=== PATIENT | female | born 1975 | race Caucasian/White ===

== ENCOUNTER 2017-06-03 17:41 | Emergency (ER) | payer OTHER, SELFPAY ==
[2017-06-03 18:49] VITALS: BP 124/80; PULSE 73; RESP 20; TEMP 36.6; O2SAT 99; BMI 27.8
--- NOTE | 2017-06-03 19:05 | HMH.EDUTC ---
[facility] [place] Disposition Clinical Impression: Sore throat, Cough Disposition: Home, Self-Care Condition on Discharge: Good Additional Instructions: * Monitor Temp. Tylenol and/or Ibuprofen as needed. ER if fever is no less than 101 despite alternating Tylenol and Ibuprofen * Encourage fluids, water, Gatorade, powerade, pedialyte if /toddler/or child * Warm salt water gargles for throat irritation *Warm fluids *Sore throat lozenges *Sleep elevated *humidifier or vaporizer Lots of rest Increase fluids, water, Gatorade, powerade Follow up IMMEDIATELY for new or worsening of symptoms OR no noticeable improvement over the next 48-72 hours. 911 immediately for any life threatening symptoms such as chest pain or difficulty breathing Prescriptions: Azithromycin [Z-Porfirio 250mg Tab] 250 mg PO UD DOSE PK #6 tab predniSONE [Prednisone 20mg Tab] 20 mg PO BID #10 tab Promethazine/Dextromethorphan [Promethazine-Dm Syrup] 5 ml PO Q4H #150 syrup Time of Disposition: 19:13 Medical Decision Making Vital Signs: 06/03/17 18:49 Temperature 98 F Temperature Source Temporal Artery Scan Pulse Rate [Right Radial] 73 Respiratory Rate 20 Blood Pressure [Right Arm] 124/80 Blood Pressure Mean [Right Arm] 94 Blood Pressure Source [Right Arm] Automatic Cuff Blood Pressure Position [Right Arm] Sitting 02 Sat by Pulse Oximetry 99 Oxygen Delivery Method Room Air - Myron Inquiry Pt receiving controlled substance: No Myron was queried for this patient: No [facility] [place] HPI - General Stated complaint: cough sore throat ear pain Time Seen by Provider: 06/03/17 19:13 Mode of Arrival: Ambulatory Source of Information: Patient Limitations: No Limitations Description of Symptoms (Recalled from Triage Doc. by RN): PT C/O COUGH, BODY ACHES, AND FEVER. HEENT Symptoms (Recalled from RN notes): No Resp Symptoms (Recalled from RN notes): Yes (COUGH) Skin Symptoms (Recalled from RN notes): No MS Symptoms (Recalled from RN notes): No Functional Status (Recalled from RN notes): NA - History of Present Illness Provider Complaint: Patient state that she has been having cough and congestion along with sinus pain and drainage Onset (ago): day(s) (3) Severity: mild Severity scale (1-10): 3 Exacerbating factors: none Treatments prior to arrival: none - Related Data Previous Rx's Medication Instructions Recorded Azithromycin [Z-Porfirio 250mg Tab] 250 mg PO UD DOSE PK #6 tab 06/03/17 Promethazine/Dextromethorphan 5 ml PO Q4H #150 syrup 06/03/17 [Promethazine-Dm Syrup] predniSONE [Prednisone 20mg 20 mg PO BID #10 tab 06/03/17 Tab] Allergies Allergy/AdvReac Type Severity Reaction Status Date / Time amoxicillin Allergy Verified 06/03/17 18:56 Sulfa (Sulfonamide Allergy Verified 06/03/17 18:56 Antibiotics) tetracycline Allergy Verified 06/03/17 18:56 - Worker's Comp Is this a Worker's Comp case?: No Is this an [facility] Worker's Comp?: No Is this a [place] Worker's Comp?: No [facility] History Medical History: Denies:: Cancer, Diabetes Mellitus Type 1, Diabetes Mellitus Type 2, MRSA Amputation: No Fractures: No - *Social History Smoking Status: Never smoker Alcohol Intake: never - Psychiatric History Expresses thoughts of harming self/others: None Suicide Plan Description: No Plan - Constitutional Reports chills, Reports fever(s) - ENT Reports nasal congestion - Respiratory Reports chest congestion, Reports cough Physical Exam - General General appearance: alert, in no apparent distress - ENT ENT exam: Present: normal exam, normal oropharynx, mucous membranes moist, TM's normal bilaterally, normal external ear exam - Expanded ENT Exam Nose exam: Present: sinus tenderness Comment: Throat red irritated, tenderness noted maxillary sinus - Chest Chest inspection: Present: normal inspection, symmetric chest wall rise. Absent: tenderness - Respiratory Respiratory exam: Present: normal lung sounds bi
--- NOTE | 2017-06-03 19:09 | ED_ITS ---
[facility] [place] Clinical Impression: Sore throat, Cough Disposition: Home, Self-Care Condition on Discharge: Good Additional Instructions: * Monitor Temp. Tylenol and/or Ibuprofen as needed. ER if fever is no less than 101 despite alternating Tylenol and Ibuprofen * Encourage fluids, water, Gatorade, powerade, pedialyte if /toddler/or child * Warm salt water gargles for throat irritation *Warm fluids *Sore throat lozenges *Sleep elevated *humidifier or vaporizer Lots of rest Increase fluids, water, Gatorade, powerade Follow up IMMEDIATELY for new or worsening of symptoms OR no noticeable improvement over the next 48-72 hours. 911 immediately for any life threatening symptoms such as chest pain or difficulty breathing Prescriptions: Azithromycin [Z-Porfirio 250mg Tab] 250 mg PO UD DOSE PK #6 tab predniSONE [Prednisone 20mg Tab] 20 mg PO BID #10 tab Promethazine/Dextromethorphan [Promethazine-Dm Syrup] 5 ml PO Q4H #150 syrup Time of Disposition: 19:13 Medical Decision Making Vital Signs: 06/03/17 18:49 Temperature 98 F Temperature Source Temporal Artery Scan Pulse Rate [Right Radial] 73 Respiratory Rate 20 Blood Pressure [Right Arm] 124/80 Blood Pressure Mean [Right Arm] 94 Blood Pressure Source [Right Arm] Automatic Cuff Blood Pressure Position [Right Arm] Sitting 02 Sat by Pulse Oximetry 99 Oxygen Delivery Method Room Air - Myron Inquiry Pt receiving controlled substance: No Myron was queried for this patient: No [facility] [place] - General Stated complaint: cough sore throat ear pain Time Seen by Provider: 06/03/17 19:13 Mode of Arrival: Ambulatory Source of Information: Patient Limitations: No Limitations Description of Symptoms (Recalled from Triage Doc. by RN): PT C/O COUGH, BODY ACHES, AND FEVER. HEENT Symptoms (Recalled from RN notes): No Resp Symptoms (Recalled from RN notes): Yes (COUGH) Skin Symptoms (Recalled from RN notes): No MS Symptoms (Recalled from RN notes): No Functional Status (Recalled from RN notes): NA - History of Present Illness Provider Complaint: Patient state that she has been having cough and congestion along with sinus pain and drainage Onset (ago): day(s) (3) Severity: mild Severity scale (1-10): 3 Exacerbating factors: none Treatments prior to arrival: none - Related Data Previous Rx's Medication Instructions Recorded Azithromycin [Z-Porfirio 250mg Tab] 250 mg PO UD DOSE PK #6 tab 06/03/17 Promethazine/Dextromethorphan 5 ml PO Q4H #150 syrup 06/03/17 [Promethazine-Dm Syrup] predniSONE [Prednisone 20mg 20 mg PO BID #10 tab 06/03/17 Tab] Allergies Allergy/AdvReac Type Severity Reaction Status Date / Time amoxicillin Allergy Verified 06/03/17 18:56 Sulfa (Sulfonamide Allergy Verified 06/03/17 18:56 Antibiotics) tetracycline Allergy Verified 06/03/17 18:56 - Worker's Comp Is this a Worker's Comp case?: No Is this an [facility] Worker's Comp?: No Is this a [place] Worker's Comp?: No [facility] History Medical History: Denies:: Cancer, Diabetes Mellitus Type 1, Diabetes Mellitus Type 2, MRSA Amputation: No Fractures: No - *Social History Smoking Status: Never smoker Alcohol Intake: never - Psychiatric History Expresses thoughts of harming self/others: None Suicide Plan Description: No Plan
[2017-06-03 19:42] LABS: UTC Influenza A Antigen Negative (Negative); UTC Influenza B Antigen Negative (Negative)
== END 2017-06-03 19:49 | disposition home or self-care (01) ==
PROVIDERS: Emergency Provider Nurse Practitioner
DX: J02.9 Acute pharyngitis, unspecified (principal); Z88.1 Allergy status to other antibiotic agents; Z88.2 Allergy status to sulfonamides
CPT/HCPCS: 87276; 87804; 99201

== ENCOUNTER 2017-08-17 10:20 | Emergency (ER) | payer OTHER, SELFPAY ==
[2017-08-17 10:36] VITALS: BP 114/70; PULSE 63; RESP 18; TEMP 36.6; O2SAT 100; BMI 24.7
[2017-08-17 10:53] LABS: Basophils % 0.3 % (0.1-2.0); Eosinophils # 0.1 K/mm3 (0.0-0.4); Eosinophils % 1.3 % (0.1-12.0); Hematocrit 44.2 % (37.0-47.0); Hemoglobin 14.9 g/dL (12.2-16.2); Lymphocytes # 2.2 K/mm3 (0.7-4.5); Mean Corpuscular HGB Conc 33.7 g/dL (31.8-35.4); Mean Corpuscular Hemoglobin 32.7 pg (27.0-31.2); Mean Corpuscular Volume 96.9 fl (81-99); Mean Platelet Volume 7.5 fl (7.4-10.4); Monocytes # 0.3 K/mm3 (0.1-1.0); Monocytes % 5.7 % (1.7-9.3); Neutrophils # 3.2 K/mm3 (1.8-7.8); Neutrophils % 54.6 % (37.0-80.0); Platelet Count 219 K/mm3 (142-424); Red Blood Count 4.57 M/mm3 (4.20-5.40); Red Cell Distribution Width 12.3 % (11.5-17.5); White Blood Count 5.9 K/mm3 (4.8-10.8)
[2017-08-17 11:03] LABS: Alanine Aminotransferase 40 U/L (12-78); Albumin Level 4.2 gm/dL (3.4-5.0); Albumin/Globulin Ratio 1.1 (1.1-1.8); Alkaline Phosphatase 69 U/L (46-116); Anion Gap 13.4 mEq/L (5-15); Aspartate Amino Transferase 26 U/L (15-37); Bilirubin,Total 0.5 mg/dL (0.2-1.0); Blood Urea Nitrogen 15 mg/dL (7-18); Carbon Dioxide 26 mmol/L (21.0-32.0); Chloride 105 mmol/L (98-107); Creatinine Clearance Estimated 69 mL/min (0-300); Creatinine,Serum 1.06 mg/dL (0.55-1.02); Estimated Glomerular Filt Rate 57 ml/min (>60); GFR (African American) 68 ML/MIN (>60); Globulin 3.7 gm/dl (1.3-3.2); Glucose 106 mg/dL (74-106); Potassium 4.4 mmoL/L (3.5-5.1); Sodium 140 mmol/L (136-145); Total Protein,Serum 7.9 gm/dL (6.4-8.2)
--- NOTE | 2017-08-17 11:05 | HMH.EDUTC ---
[facility] [place] Impression: Headache Qualifiers: Headache type: tension-type Headache chronicity pattern: acute headache Intractability: not intractable Qualified Code(s): G44.209 - Tension-type headache, unspecified, not intractable Disposition: Home, Self-Care Condition on Discharge: Good Instructions: DI for Headache Additional Instructions: F/U with PCP re rectal bleeding Time of Disposition: 11:41 Medical Decision Making - Medical Records Medical records reviewed: Yes: I reviewed the patient's medical records. MR Comment: She has only been at [facility] once before, unfortunately - Myron Inquiry Pt receiving controlled substance: No Vital Signs: 08/17/17 10:36 Temperature 97.8 F Temperature Source Oral Pulse Rate [Right Radial] 63 Respiratory Rate 18 Blood Pressure [Right Arm] 114/70 Blood Pressure Mean [Right Arm] 84 Blood Pressure Source [Right Arm] Automatic Cuff Blood Pressure Position [Right Arm] Sitting 02 Sat by Pulse Oximetry 100 Oxygen Delivery Method Room Air - Lab Data Lab results reviewed: Yes: I reviewed the patient's lab results. Lab Results 08/17/17 10:40: WBC 5.9, RBC 4.57, Hgb 14.9, Hct 44.2, MCV 96.9, MCH 32.7 H, MCHC 33.7, RDW 12.3, Plt Count 219, MPV 7.5, Neut % (Auto) 54.6, Lymph % (Auto) 38.0, [place] % (Auto) 5.7, Eos % (Auto) 1.3, Baso % (Auto) 0.3, Neut # (Auto) 3.2, Lymph # (Auto) 2.2, [place] # (Auto) 0.3, Eos # (Auto) 0.1, Baso # (Auto) 0.0 08/17/17 10:40: Sodium 140, Potassium 4.4, Chloride 105, Carbon Dioxide 26, Anion Gap 13.4, BUN 15, Creatinine 1.06 H, Estimated Creat Clear 69, Estimated GFR 57 L, Est GFR ( Amer) 68, Glucose 106, Calcium 9.0, Total Bilirubin 0.5, AST 26, ALT 40, Alkaline Phosphatase 69, Total Protein 7.9, Albumin 4.2, Globulin 3.7 H, Albumin/Globulin Ratio 1.1 Result diagrams: 08/17/17 10:40 08/17/17 10:40 Orders (Tests/Meds): ED MEDICATIONS Discontinued Medications Generic Name Dose Route Start Last Admin Trade Name Blayne PRN Reason Stop Dose Admin Ketorolac Tromethamine 60 mg 08/17/17 11:24 08/17/17 11:28 Toradol 60mg/2ml Vial IM 08/17/17 11:25 60 mg ONCE ONE Administration Promethazine HCl 25 mg 08/17/17 10:50 08/17/17 10:56 Phenergan 25mg/Ml 1ml Vial IM 08/17/17 10:51 25 mg ONCE ONE Administration Medical Decision Narrative: Patient improved with Phenergan and Toradol. H&H are normal. [facility] [place] General Stated complaint: Ba Carrington Time Seen by Provider: 08/17/17 10:40 Mode of Arrival: Ambulatory Source of Information: Patient Limitations: No Limitations Description of Symptoms (Recalled from Triage Doc. by RN): PT C/O NAUSEA, WEAKNESS, HEADACHE FOR 3 DAYS AND RECTAL BLEEDING FOR A WHILE NOW. PT HAS HISTORY OF HEMORRHOIDECTOMY. HEENT Symptoms (Recalled from RN notes): Yes (HEADACHE,WEAKNESS) Resp Symptoms (Recalled from RN notes): No Skin Symptoms (Recalled from RN notes): Yes (NIGHT AND DAY SWEATS) MS Symptoms (Recalled from RN notes): No Functional Status (Recalled from RN notes): NA - History of Present Illness Provider Complaint: Patient presents with headache. Has had headache for 3 days. Took Tylenol last night and Sudafed this am. Headache didn't really change. Had similar headaches before but they went away. This one is different only in that it has not. She denies that it is the worst headache of her life. She does have nausea and vomiting. Has some chills. Denies ear pain. Denies sore throat. Denies cough. She also states that she has noticed blood in her stool for the past few weeks. In 2005 she had similar, had a blood transfusion, had a polyp removed and a hemorrhoidectomy. She had a colonoscopy last year. She has had a hysterectomy. Onset (ago): day(s) (3) Location: head Relieving factors: none Exacerbating factors: movement Associated symptoms: headaches, nausea/vomiting - Related Data Allergies Allergy/AdvReac Type Severity Reaction Status Date / Time amoxic
--- NOTE | 2017-08-17 11:12 | ED_ITS ---
[facility] [place] Disposition Clinical Impression: Headache Qualifiers: Headache type: tension-type Headache chronicity pattern: acute headache Intractability: not intractable Qualified Code(s): G44.209 - Tension-type headache, unspecified, not intractable Disposition: Home, Self-Care Condition on Discharge: Good Instructions: DI for Headache Additional Instructions: F/U with PCP re rectal bleeding Time of Disposition: 11:41 Medical Decision Making - Medical Records Medical records reviewed: Yes: I reviewed the patient's medical records. MR Comment: She has only been at [facility] once before, unfortunately - Myron Inquiry Pt receiving controlled substance: No Vital Signs: 08/17/17 10:36 Temperature 97.8 F Temperature Source Oral Pulse Rate [Right Radial] 63 Respiratory Rate 18 Blood Pressure [Right Arm] 114/70 Blood Pressure Mean [Right Arm] 84 Blood Pressure Source [Right Arm] Automatic Cuff Blood Pressure Position [Right Arm] Sitting 02 Sat by Pulse Oximetry 100 Oxygen Delivery Method Room Air - Lab Data Lab results reviewed: Yes: I reviewed the patient's lab results. Lab Results 08/17/17 10:40: WBC 5.9, RBC 4.57, Hgb 14.9, Hct 44.2, MCV 96.9, MCH 32.7 H, MCHC 33.7, RDW 12.3, Plt Count 219, MPV 7.5, Neut % (Auto) 54.6, Lymph % (Auto) 38.0, [place] % (Auto) 5.7, Eos % (Auto) 1.3, Baso % (Auto) 0.3, Neut # (Auto) 3.2 , Lymph # (Auto) 2.2, [place] # (Auto) 0.3, Eos # (Auto) 0.1, Baso # (Auto) 0.0 08/17/17 10:40: Sodium 140, Potassium 4.4, Chloride 105, Carbon Dioxide 26, Anion Gap 13.4, BUN 15, Creatinine 1.06 H, Estimated Creat Clear 69, Estimated GFR 57 L, Est GFR ( Amer) 68, Glucose 106, Calcium 9.0, Total Bilirubin 0.5, AST 26, ALT 40, Alkaline Phosphatase 69, Total Protein 7.9, Albumin 4.2, Globulin 3.7 H, Albumin/Globulin Ratio 1.1 Result diagrams: 08/17/17 10:40 08/17/17 10:40 Orders (Tests/Meds): ED MEDICATIONS Discontinued Medications Generic Name Dose Route Start Last Admin Trade Name Blayne PRN Reason Stop Dose Admin Ketorolac Tromethamine 60 mg 08/17/17 11:24 08/17/17 11:28 Toradol 60mg/2ml Vial IM 08/17/17 11:25 60 mg ONCE ONE Administration Promethazine HCl 25 mg 08/17/17 10:50 08/17/17 10:56 Phenergan 25mg/Ml 1ml Vial IM 08/17/17 10:51 25 mg ONCE ONE Administration Medical Decision Narrative: Patient improved with Phenergan and Toradol. H&H are normal. [facility] [place] HPI - General Stated complaint: Ba Carrington Time Seen by Provider: 08/17/17 10:40 Mode of Arrival: Ambulatory Source of Information: Patient Limitations: No Limitations Description of Symptoms (Recalled from Triage Doc. by RN): PT C/O NAUSEA, WEAKNESS, HEADACHE FOR 3 DAYS AND RECTAL BLEEDING FOR A WHILE NOW. PT HAS HISTORY OF HEMORRHOIDECTOMY. HEENT Symptoms (Recalled from RN notes): Yes (HEADACHE,WEAKNESS) Resp Symptoms (Recalled from RN notes): No Skin Symptoms (Recalled from RN notes): Yes (NIGHT AND DAY SWEATS) MS Symptoms (Recalled from RN notes): No Functional Status (Recalled from RN notes): NA - History of Present Illness Provider Complaint: Patient presents with headache. Has had headache for 3 days. Took Tylenol last night and Sudafed this am. Headache didn't really change. Had similar headaches before but they went away. This one is different only in that it has not. She denies that it is the worst headache of her life. She does have n
[2017-08-17 11:40] VITALS: BP 110/69; PULSE 68; RESP 18; TEMP 36.8; O2SAT 100
== END 2017-08-17 11:46 | disposition home or self-care (01) ==
PROVIDERS: Emergency Provider Physician Assistant
DX: G44.209 Tension-type headache, unspecified, not intractable (principal); K62.5 Hemorrhage of anus and rectum
CPT/HCPCS: 80053; 85025; 96372; 99201

== ENCOUNTER 2019-12-21 13:19 | Emergency (ER) | payer MEDICAID, SELFPAY ==
[2019-12-21 13:40] VITALS: BP 142/71; PULSE 83; RESP 20; TEMP 36.8; O2SAT 99; BMI 26.5
--- NOTE | 2019-12-21 13:45 | HMH.EDUTC ---
[facility] [place] Disposition Clinical Impression: URI (upper respiratory infection) Qualifiers: URI type: unspecified URI Qualified Code(s): J06.9 - Acute upper respiratory infection, unspecified Disposition: Home, Self-Care Condition on Discharge: Good Instructions: Sore Throat, Diarrhea, DI for Fever (Symptom) -- Adult, Preventing the Spread of Coronavirus Discharge Instructions Additional Instructions: *Monitor Temp, Over the counter Motrin or Tylenol as directed/as needed Tylenol every 4 hours and Motrin every 6 hours (as long as your family doctor has told you that you can take it) for fever or pain. and straight to ER if unable to lower temp less than 101.0 after medication given *Warm salt water gargles may help to soothe the throat *Throat Lozenges *Warm fluids like tea with honey may help to soothe the throat *Sleep elevated *Humidifier/Vaporizer *Flonase 2 sprays in each nostril daily but be aware that it may take 2-3 days before you notice improvement You was tested for COVID19, you was given a handout with instructions for quaranine while waiting on your test result and Quarantine if positive result. make sure to follow those instructions to help prevent the spread of COVID19 Call back to the [facility] tomorrow or to see if your test results are back and what the result was Continue taking Zpack Make sure to drink plenty of fluids Follow up IMMEDIATELY for new or worsening symptoms or no Noticeable improvement over the next 48-72 hours. 911 for difficulty breathing or swallowing Prescriptions: Albuterol Sulfate [Proventil-HFA 90mcg/puff Inh] 1 - 2 puffs IH Q4HP PRN #1 inh PRN Reason: Shortness Of Breath Transmission Status: Pending to [facility] # Fluticasone Propionate [Flonase 50mcg nasal spray 16gm] 1 - 2 spr NS DAILY #1 bottle Transmission Status: Pending to [facility] # Benzonatate [Tessalon Perle 100mg Cap*] 100 mg PO TID PRN #15 cap PRN Reason: Cough Transmission Status: Pending to [facility] # Referrals: PCP,No [Primary Care Provider] - As needed Time of Disposition: 14:15 Medical Decision Making - Myron Inquiry Pt receiving controlled substance: No Myron was queried for this patient: No Vital Signs: 12/21/19 13:40 Temperature 98.2 F Temperature Source Oral Pulse Rate [Right Brachial] 83 Respiratory Rate 20 Blood Pressure [Right Arm] 142/71 H Blood Pressure Mean [Right Arm] 94 Blood Pressure Source [Right Arm] Automatic Cuff Blood Pressure Position [Right Arm] Sitting 02 Sat by Pulse Oximetry 99 Oxygen Delivery Method Room Air Orders (Tests/Meds): ORDERS Category Date Time Status SARS-CoV-2, JUANITA Stat Lab 12/21/19 13:[address] [facility] [place] HPI - General Stated complaint: wants covid 19 test,cough,diarrhea Time Seen by Provider: 12/21/19 13:45 Mode of Arrival: Ambulatory Source of Information: Patient Limitations: No Limitations Description of Symptoms (Recalled from Triage Doc. by RN): PATIENT C/O COUGH AND SINUS DRAINAGE X2 WEEKS. REQUESTING COVID TEST HEENT Symptoms (Recalled from RN notes): Yes Resp Symptoms (Recalled from RN notes): Yes Skin Symptoms (Recalled from RN notes): No MS Symptoms (Recalled from RN notes): No Functional Status (Recalled from RN notes): WNL - History of Present Illness Provider Complaint: Patient states that she is currently on a zpack for sinus infection States that she has continued to have cough, nasal congestion diarrhea and scratchy throat States that she was concerned when she wasn't feeling better after starting zpack and wanted to get tested for the COVID. - Related Data Home Medications Medication Instructions Recorded Confirmed Azithromycin [Z-Porfirio 250mg Tab*] 250 mg PO UD DOSE PK 12/21/19 12/21/19 Previous Rx's Medication Instructions Recorded Albuterol Sulfate [Proventil-HFA 1 - 2 puffs IH Q4HP PRN #1 inh 12/21/19 90mcg/puff Inh] Benzonatate [Tessalon Perle 100mg 100 mg
[2019-12-21 14:19] VITALS: BP 142/71; PULSE 83; RESP 20; TEMP 36.8; O2SAT 99
[2019-12-22 15:17] LABS: Covid-19 Nasal PCR Sendout Lex NOT DETECTED
== END 2019-12-21 14:24 | disposition home or self-care (01) ==
PROVIDERS: Emergency Provider Nurse Practitioner
DX: J06.9 Acute upper respiratory infection, unspecified (principal); Z03.818 Encounter for observation for suspected exposure to other biological agents ruled out; Z88.1 Allergy status to other antibiotic agents; Z88.2 Allergy status to sulfonamides; Z88.5 Allergy status to narcotic agent
CPT/HCPCS: 99201; U0004

== ENCOUNTER 2020-07-04 12:28 | Emergency (ER) | payer MEDICAID, SELFPAY ==
[2020-07-04 12:43] VITALS: BP 116/70; PULSE 66; RESP 18; TEMP 37; O2SAT 96; BMI 27.4
[2020-07-04 12:45] LABS: Apearance,Urine Clear (Clear); Bilirubin,Urine Negative (Negative); Blood, Urine Negative (Negative); Color,Urine Yellow (Yellow); Glucose,Urine (UA) Negative (Negative); Ketones,Urine Negative (Negative); PH,Urine 8.5 (5.0-8.5); Protein,Urine Negative (Negative); UTC Leukocyte Esterase,Urine Negative (Negative); UTC Nitrate,Urine Negative (Negative); Urobilinogen,Urine 0.2 EU/dl (0.2)
--- NOTE | 2020-07-04 12:50 | HMH.EDUTC ---
[facility] [place] Impression: Upset stomach Disposition: Home, Self-Care Condition on Discharge: Good Instructions: DI for Gastroesophageal Reflux Disease (GERD), DI for Abdominal Pain-Adult, GERD Diet Additional Instructions: Make sure to call and make appointment with your Family Doctor for further testing and evaluation Return if needed Straight to ER if any worsening of symptoms or any life threatening symptoms Prescriptions: Ondansetron [Zofran 4mg ODT] 4 mg PO TIDP PRN #9 tab PRN Reason: Nausea Transmission Status: Received by [facility] #[id number] Referrals: PCP,No [Primary Care Provider] - As needed (Call your Family Doctor for appointment as soon as possible) Forms: Work/School Release Time of Disposition: 13:11 Medical Decision Making - Myron Inquiry Pt receiving controlled substance: No Myron was queried for this patient: No Vital Signs: 07/04/20 12:43 07/04/20 13:31 Temperature 98.6 F 98.6 F Temperature Source Oral Pulse Rate 66 Pulse Rate [Right Brachial] 66 Respiratory Rate 18 18 Blood Pressure 116/70 Blood Pressure [Right Arm] 116/70 Blood Pressure Mean [Right Arm] 85 Blood Pressure Source [Right Arm] Automatic Cuff Blood Pressure Position [Right Arm] Sitting 02 Sat by Pulse Oximetry 96 Oxygen Delivery Method Room Air - Lab Data Lab results reviewed: Yes: I reviewed the patient's lab results. Lab Results 07/04/20 12:29: Urine Color Yellow, Urine Appearance Clear, Urine pH 8.5, Ur Specific [place] 1.020, Urine Protein Negative, Urine Glucose (UA) Negative, Urine Ketones Negative, Urine Blood Negative, Urine Nitrate Negative, Urine Bilirubin Negative, Urine Urobilinogen 0.2, Ur Leukocyte Esterase Negative Orders (Tests/Meds): ED MEDICATIONS Discontinued Medications Generic Name Dose Route Start Last Admin Trade Name Freq PRN Reason Stop Dose Admin Belladonna Alkaloids 60 ml 07/04/20 12:54 07/04/20 13:00 Gi Cocktail 60ml Udc PO 07/04/20 12:55 60 ml ONCE ONE Administration Medical Decision Narrative: Discussed transfer to the ED for further evaluation and testing and patient declined states that she will follow up with her PCP for further evaluation and testing and will return if symptoms worsen Patient states that cramping like feeling in her upper abdomen improved after medication again recommended transfer to the ED and patient declined States that she is going to call her PCP for further testing and treatment [facility] [place] - General Stated complaint: Possible kidney infection Time Seen by Provider: 07/04/20 12:52 Mode of Arrival: Ambulatory Source of Information: Patient Limitations: No Limitations Description of Symptoms (Recalled from Triage Doc. by RN): PATIENT C/O NAUSEA AND UPPER ABDOMINAL CRAMPING X 1.5 WEEKS HEENT Symptoms (Recalled from RN notes): No Resp Symptoms (Recalled from RN notes): No Skin Symptoms (Recalled from RN notes): No MS Symptoms (Recalled from RN notes): No Functional Status (Recalled from RN notes): WNL - History of Present Illness Provider Complaint: Patient state that she has a history of GERD States that she has been having some upper abdominal discomfort and cramping like feeling State that she spoke with her family doctor and they told her to come in and get tested for UTI and if negative to follow up in the clinic for further evaluation Patient states that symptoms worse at times after eating. and have been coming and going for the last couple of weeks - Related Data Home Medications Medication Instructions Recorded Confirmed Azithromycin [Z-Porfirio 250mg Tab*] 250 mg PO UD DOSE PK 12/21/19 12/21/19 Previous Rx's Medication Instructions Recorded Albuterol Sulfate [Proventil-HFA 1 - 2 puffs IH Q4HP PRN #1 inh 12/21/19 90mcg/puff Inh] Benzonatate [Tessalon Perle 100mg 100 mg PO TID PRN #15 cap 12/21/19 Cap*] Fluticasone Propionate [Flonase 1 - 2 spr NS DAILY #1 bottle 12/21/19 5
[2020-07-04 13:31] VITALS: BP 116/70; PULSE 66; RESP 18; TEMP 37; O2SAT 96
== END 2020-07-04 13:32 | disposition home or self-care (01) ==
PROVIDERS: Emergency Provider Nurse Practitioner; PCP Internal Medicine
DX: K30 Functional dyspepsia (principal); K21.9 Gastro-esophageal reflux disease without esophagitis; R10.10 Upper abdominal pain, unspecified; Z88.6 Allergy status to analgesic agent; Z88.1 Allergy status to other antibiotic agents; Z88.2 Allergy status to sulfonamides
CPT/HCPCS: 81003; 99202; G0463